=== PATIENT | male | born 1945 | race Caucasian/White ===

== ENCOUNTER → 2020-12-05 13:14 | Outpatient (BNVA) | payer MEDICARE, SELFPAY | PROVIDERS: Visit Provider Nurse Practitioner Family | DX: Z20.822 Contact with and (suspected) exposure to COVID-19 (principal) | CPT/HCPCS: 87635 ==

== ENCOUNTER → 2021-03-11 14:00 | Outpatient (BNVA) | payer MEDICARE, SELFPAY | PROVIDERS: Visit Provider Nurse Practitioner Family | DX: Z20.822 Contact with and (suspected) exposure to COVID-19 (principal) | CPT/HCPCS: 87635 ==

== ENCOUNTER 2022-01-28 06:00 | Outpatient (RCR) | payer MEDICARE, OTHER, SELFPAY | END 2022-02-22 23:59 | disposition home or self-care (01) | LOC: GPT 06:00 | PROVIDERS: Visit Provider Nurse Practitioner Family | DX: F07.81 Postconcussional syndrome (principal); M54.2 Cervicalgia; M62.838 Other muscle spasm | CPT/HCPCS: 97110; 97140; 97162 ==

== ENCOUNTER → 2022-05-12 11:03 | Outpatient (BNVA) | payer MEDICARE, OTHER, SELFPAY | PROVIDERS: Visit Provider Specialist | DX: G43.711 Chronic migraine without aura, intractable, with status migrainosus (principal); F07.81 Postconcussional syndrome; G44.309 Post-traumatic headache, unspecified, not intractable; M54.2 Cervicalgia | CPT/HCPCS: 96116; 99205 ==

== ENCOUNTER 2022-06-01 14:51 | Outpatient (CLI) | payer MEDICARE, OTHER, SELFPAY ==
--- NOTE | 2022-06-01 15:15 | MR_ITS ---
WS: [id number] MRI BRAIN WITHOUT CONTRAST HISTORY: F07.81 - Postconcussional syndrome COMPARISON: None available. TECHNIQUE: Diffusion imaging, multiplanar T1, T2 and FLAIR imaging obtained. Quality of this exam is limited by motion artifact. No acute hemorrhage or infarct. Diffusion-weighted imaging is normal. Mild periventricular white lazarus er changes. No prior infarct with volume loss. No remote or acute infarcts are volume loss. Ventricles and extra-axial spaces are normal. No inferior displacement of cerebellar tonsils. The sella turcica and pituitary gland are unremarkabl e. Dural venous sinuses and [place] demonstrate no abnormality on this unenhanced studies. 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 No air-fluid levels. Mastoid air cells: Normal. Calvarium and scalp: Intact. MR/MR head wo con* [id number] IMPRESSION: 1. No acute infarcts. 2. No hemorrhage or mass effect. 3. Very minimal small vessel ischemic disease in the periventricular white mat ter.
--- NOTE | 2022-06-01 16:00 | MR_ITS ---
WS: [id number] MRI CERVICAL SPINE NONCONTRAST HISTORY: F07.81 - Postconcussional syndrome COMPARISON: None available. Technique: Multiplanar, multisequence noncontrast imaging of the cervical spine. Moderate motion artifact. Mild straightening of the normal cervical lordosis. Less than 2 mm retrolisthesis of C3 and C4. No ac [place] fractures or marrow edema. Signal within the cervical cord is normal. Visualized posterior fossa is unremarkable. Craniocervical junction, C1 and C2 relationship, odontoid process and soft tissues are normal. C2-C3: Normal. C3-C4: RIGHT foraminal osteophyte resulting in moderate stenosis. Smaller osteophyte LEFT foramen wit h only mild narrowing. C4-C5: Diffuse osteophytic ridging. Mild central and moderate bilateral foraminal stenosis. C5-C6: Mild osteophytic ridging and disc bulging. Bilateral facet joint arthritis. Mild central and b ilateral foraminal stenosis. C6-C7: Osteophytic ridging with mild bilateral facet joint arthritis. Very mild central stenosis. C7-T1: Small central disc protrusion. No foraminal stenosis. Small central disc protrusion at T2-3 causing mild contact on the thoracic cord. MR/MR cervical spin wo con* [id number] IMPRESSION: 1. Quality of this examination is compromised by motion. 2. 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 3. Moderate RIGHT foraminal stenosis due to osteophytes. 4. Mild central stenosis at C6-7. 5. Mild central and bilateral foraminal stenosis at C5-6. 6. No acute fractures.
== END 2022-06-01 14:52 | disposition home or self-care (01) ==
LOC: RAD 14:52
PROVIDERS: PCP Family Medicine; Visit Provider Specialist
DX: G44.309 Post-traumatic headache, unspecified, not intractable (principal); F07.81 Postconcussional syndrome
CPT/HCPCS: 70551; 72141

== ENCOUNTER → 2022-07-26 11:15 | Outpatient (BNVA) | payer MEDICARE, OTHER, SELFPAY | PROVIDERS: PCP Family Medicine; Visit Provider Specialist | DX: M54.2 Cervicalgia (principal); F07.81 Postconcussional syndrome; R41.89 Other symptoms and signs involving cognitive functions and awareness | CPT/HCPCS: 99213 ==

== ENCOUNTER → 2023-01-25 13:16 | Outpatient (BNVA) | payer MEDICARE, OTHER, SELFPAY | PROVIDERS: PCP Family Medicine; Visit Provider Specialist | DX: F07.81 Postconcussional syndrome (principal); M54.2 Cervicalgia; G43.711 Chronic migraine without aura, intractable, with status migrainosus | CPT/HCPCS: 99212 ==